=== PATIENT | female | born 1980 | race Hispanic/Latino ===

== ENCOUNTER → 2023-06-22 | Emergency (ER) | payer SELFPAY ==
[~2023-06-22] MED LIST: KETOROLAC 30 MG/ML INJ ONE; MORPHINE 4 MG/ML SYR ONE; ONDANSETRON 4 MG/2 ML VIAL ONE
--- OUTSIDE RECORDS SUMMARY | 2023-06-22 14:52 | XMS REPORT | Continuity of Care Document ---
Author Name Unknown Address [address] [place] [address] th[address] Address [address] [place] [address] [address] [place] [address] Care Team Providers Care Fountain Dispenser Name Role Phone ERIN_MILLIE Attending Clinician Unavailable ERIN_MILLIE Admitting Clinician Unavailable Encounters Start Date/Time End Date/Time Encounter Type Admission Type Attending Clinicians Care Facility Care Department Encounter ID Source 2021-11-03 00:00:00 2021-11-03 00:00:00 Outpatient ERIN_BRANT Sánchez [facility] [id number] Sydnie haynes [facility] Program
[2023-06-22 15:53] LABS: Absolute Basophils 0.1 K/uL (0-0.5); Absolute Eosinophils 0.1 K/uL (0-0.5); Absolute Lymphocytes (CBC) 2.2 K/uL (0.7-4.9); Absolute Monocytes 0.5 K/uL (0.1-1.3); Basophils % 0.9 % (0-1.3); Eosinophils % 1.4 % (0-4.4); Hematocrit 40.7 % (36.0-45.0); Hemoglobin 13.8 g/dL (12.0-15.0); Lymphocytes % 27.8 % (15.3-44.8); MCH 29.9 pg (27.0-35.0); MCHC 33.9 g/dL (32.0-36.0); MCV 88.2 fL (80-100); MPV 8.1 fL (7.6-11.3); Monocytes % 6.3 % (3.3-12.3); Neutrophils % 63.6 % (41.7-73.7); Platelets 317 thou/uL (152-406); RBC Red Blood Cell Count 4.61 M/uL (3.86-4.86); Red Cell Distribution Width 13.3 % (12.1-15.2)
[2023-06-22 16:09] LABS: Albumin 3.4 g/dL (3.4-5.0); Albumin/Globulin Ratio 0.9 (1.1-1.8); Anion Gap 10.8 mEq/L (5.0-15.0); Bilirubin Total 0.3 mg/dL (0.2-1.0); Globulin 3.6 g/dL (2.3-3.5); Potassium 3.8 mEq/L (3.5-5.1)
[2023-06-22 16:25] LABS: Specific Gravity 1.021 (1.005-1.030)
[2023-06-22 16:26] LABS: Specific Gravity 1.021 (1.005-1.030); Sqamous Epithelial <5 /HPF (None Seen); Urine Bacteria None Seen /HPF (<20); Urine Bilirubin NEGATIVE (Negative); Urine Blood Negative (Negative); Urine Clarity Turbid (Clear); Urine Color Light-Yellow (Yellow); Urine Culture Reflex Order NOT NEEDED; Urine Glucose NEGATIVE (Negative); Urine Ketones NEGATIVE (Negative); Urine Microscopic Reflex YN ORDER UMIC; Urine Mucus Slight /HPF (None Seen); Urine Nitrite NEGATIVE (Negative); Urine Protein NEGATIVE (Negative); Urine RBC None Seen /HPF (None Seen); Urine Urobilinogen Normal (Normal); Urine WBC <5 /HPF (<5); Urine pH 5.5 (5.0-7.0)
--- NOTE | 2023-06-22 17:01 | RAD REPORT ---
EXAM DESCRIPTION: CT - Abdomen Pelvis Wo Contrast - 06/22/2023 4:49 pm CLINICAL HISTORY: Abdominal pain. ABD PAIN COMPARISON: No comparisons TECHNIQUE: CT imaging of the abdomen and pelvis was performed without contrast. Solid organ, bowel a nd vascular assessment is limited due to lack of IV and oral contrast. All CT scans are performed using dose optimization technique as appropriate and may include automated exposure control or mA/KV adjustment according to patient size. FINDINGS: The lower lung suarez are clear.Cholecystectomy. The liver, spleen, pancreas, adrenal glands and right kidney are within normal limits for a limited n on-contrast examination.Punctate left nephrolithiasis. No bowel obstruction, free air, free fluid or abscess. The appendix is normal. Mild fibroid uterus. The osseous structures are within normal limits. IMPRESSION: No acute intra-abdominal or pelvic findings. Punctate left nephrolithiasis. A limited non-contrast examination was performed as detailed.
--- NOTE | 2023-06-22 17:39 | EDPHYS ---
Physician Documentation [facility] Name: Stephania Miller Age: 42 yrs Sex: Female : 1980 Arrival Date: 06/22/2023 Time: 14:49 Bed 20 Private MD: ED Physician Raya Melissa HPI: 06/21 17:32 This 42 yrs old Female presents to ER via Ambulatory with complaints of Flank cp3 Pain. 17:32 the patient is a 42 yo male with left flank pain that started yesterday. no fever cp3 ,chills, nausea, vomiting. Historical: - Allergies: 15:10 No Known Allergies; aa5 - PMHx: 15:10 ADD/ADHD; Anxiety; Degenerative disc disease; Depression; sleep issues (Depression); aa5 - PSHx: 15:10 section; Cholecystectomy; aa5 - Immunization history:: Adult Immunizations unknown. - Social history:: Smoking status: Patient reports the use of cigarette tobacco products, smokes one-half pack cigarettes per day. ROS: 17:32 Constitutional: Negative for fever, chills, and weight loss, Eyes: Negative for injury, cp3 pain, redness, and discharge, ENT: Negative for injury, pain, and discharge, Neck: Negative for injury, pain, and swelling, Cardiovascular: Negative for chest pain, palpitations, and edema, Respiratory: Negative for shortness of breath, cough, wheezing, and pleuritic chest pain, MS/Extremity: Negative for injury and deformity, Skin: Negative for injury, rash, and discoloration, Neuro: Negative for headache, weakness, numbness, tingling, and seizure, 17:32 Abdomen/GI: Positive for abdominal pain, right flank pain, 17:32 Back: Positive for flank pain, Exam: 17:32 Constitutional: This is a well developed, well nourished patient who is awake, alert, cp3 and in no acute distress. Head/Face: Normocephalic, atraumatic. Neck: Trachea midline, no thyromegaly or masses palpated, and no cervical lymphadenopathy. Supple, full range of motion without nuchal rigidity, or vertebral point tenderness. No Meningismus. Chest/axilla: Normal chest wall appearance and motion. Nontender with no deformity. No lesions are appreciated. Cardiovascular: Regular rate and rhythm with a normal S1 and S2. No gallops, murmurs, or rubs. Normal PMI, no JVD. No pulse deficits. Respiratory: Lungs have equal breath sounds bilaterally, clear to auscultation and percussion. No rales, rhonchi or wheezes noted. No increased work of breathing, no retractions or nasal flaring. Abdomen/GI: Soft, non-tender, with normal bowel sounds. No distension or tympany. No guarding or rebound. No evidence of tenderness throughout. 17:32 Back: CVA tenderness, that is mild, is noted on the right, Vital Signs: 15:10 BP 145 / 98; Pulse 105; Resp 20 S; Temp 98(TE); Pulse Ox 99% on R/A; Weight 100.7 kg aa5 (R); Height 5 ft. 5 in. (R); 17:30 BP 135 / 80; Pulse 80; Resp 18; Pulse Ox 99% on R/A; rs5 15:10 Body Mass Index 36.94 (100.70 kg, 165.1 cm) aa5 MDM: 15:13 Patient medically screened. cp3 17:32 Differential diagnosis: nephrolithiasis, pyelonephritis, UTI, lumbar radiculopathy. cp3 Data reviewed: vital signs, nurses notes. Consideration of Admission/Observation Escalation of care including admission/observation considered. Independent interpretation of the following test(s) in the Emergency Department CT Scan: My interpretation is ct abd/pelvis interpreted by me- no free fluid or free air. 06/21 15:26 Order name: CBC with Diff; Complete Time: 16:49 cp3 06/21 15:26 Order name: CMP; Complete Time: 16:49 cp3 06/21 15:26 Order name: Lipase; Complete Time: 16:49 cp3 06/21 15:26 Order name: Test, Urine; Complete Time: 16:49 cp3 06/21 15:26 Order name: Urinalysis w/ reflexes; Complete Time: 16:49 cp3 06/21 15:26 Order name: CT Abd/Pelvis - Without Contrast; Complete Time: 17:16 cp3 06/21 15:26 Order name: IV Saline Lock; Complete Time: 15:46 cp3 06/21 15:26 Order name: Labs collected and sent; Complete Time: 15:46 cp3 Administered Medications: 15:40 Drug: TORadol - Ketorolac IVP 15 mg IVP once Route: IVP; Site: left antecubital; rs5 16:00 Follow up: Response: No adverse reaction rs5 15:40 Drug: Ondansetron IVP 4 mg IVP once; over 2 minutes Route: IVP; Site: left antecubital; rs5 16:00 Follow up: Response: No adverse reaction rs5 15:40 Drug: morphine IVP or IV 4 mg IVP once over 4 mins Route: IVP; Infused Over: 4 mins; rs5 Site: left antecubital; 16:00 Follow up: Response: No adverse reaction rs5 Disposition Summary: 06/22/23 17:38 Discharge Ordered Notes: Location: Home cp3 Condition: Stable cp3 Diagnosis - right flank pain cp3 - right back pain cp3 Followup: cp3 - With: Edin Brody MD - When: - Reason: Continuance of care Discharge Instructions: - Discharge Summary Sheet cp3 - Flank Pain, Adult cp3 Forms: - Medication Reconciliation Form cp3 - Thank You Letter cp3 - Antibiotic Education cp3 - Prescription Opioid Use cp3 - Patient Portal Instructions cp3 - Leadership Thank You Letter cp3 Prescriptions: - Tylenol 3. 1 tab po q 8 hours as needed #12 - take 1 tablet ORAL route 3 times per day As needed; 12 tablet; Refills: 0, cp3 Product Selection Permitted - Ibuprofen 600 mg Oral Tablet - take 1 tablet ORAL route every 6 hours As needed take with food; 30 tablet; cp3 Refills: 0, Product Selection Permitted - Cyclobenzaprine 5 mg Oral Tablet - take 1 tablet ORAL route 3 times per day As needed; 15 tablet; Refills: 0, cp3 Product Selection Permitted Signatures: Dispatcher [employer] Raya Villegas MD MD cp3 Vannesa Salas RN RN aa5 Ras Sanchez RN RN rs5
--- NOTE | 2023-06-22 17:39 | ER ---
Nurse's Notes [facility] Name: Stephania Miller Age: 42 yrs Sex: Female : 1980 Arrival Date: 06/22/2023 Time: 14:49 Bed 20 Private MD: Diagnosis: right flank pain;right back pain Presentation: 06/21 15:10 Chief complaint: Patient states: right lower back pain radiating to RLQ. Pt states "I aa5 had this pain last weekend but it went away on Saturday and it just started back up again on ". 15:10 Coronavirus screen: At this time, the client does not indicate any symptoms associated aa5 with coronavirus-19. Ebola Screen: Patient denies travel to an Ebola-affected area in the 21 days before illness onset. Initial Sepsis Screen: Does the patient meet any 2 criteria? No. Patient's initial sepsis screen is negative. Does the patient have a suspected source of infection? No. Patient's initial sepsis screen is negative. Risk Assessment: Do you want to hurt yourself or someone else? Patient reports no desire to harm self or others. Onset of symptoms was June 2023. 15:10 Acuity: NINA 3 aa5 15:10 Method Of Arrival: Ambulatory aa5 Historical: - Allergies: 15:10 No Known Allergies; aa5 - PMHx: 15:10 ADD/ADHD; Anxiety; Degenerative disc disease; Depression; sleep issues (Depression); aa5 - PSHx: 15:10 section; Cholecystectomy; aa5 - Immunization history:: Adult Immunizations unknown. - Social history:: Smoking status: Patient reports the use of cigarette tobacco products, smokes one-half pack cigarettes per day. Screenin:[facility] ED Fall Risk Assessment (Adult) History of falling in the last 3 months, rs5 including since admission No falls in past 3 months (0 pts) Confusion or Disorientation No (0 pts) Intoxicated or Sedated No (0 pts) Impaired Gait No (0 pts) Mobility Assist Device Used No (0 pt) Altered Elimination No (0 pt) Score/Fall Risk Level 0 - 2 = Low Risk Oriented to surroundings, Maintained a safe environment. Abuse screen: Denies threats or abuse. Nutritional screening: No deficits noted. Tuberculosis screening: No symptoms or risk factors identified. Assessment: 15:07 General: Appears distressed, uncomfortable, Behavior is cooperative. Pain: Complains of rs5 pain in right flank Pain does not radiate. Pain currently is 9 out of 10 on a pain scale. Quality of pain is described as crampy, Is continuous. Neuro: Level of Consciousness is awake, alert, obeys commands, Oriented to person, place, time, situation. Cardiovascular: Patient's skin is warm and dry. Rhythm is regular. Respiratory: Airway is patent Respiratory effort is even, unlabored, Respiratory pattern is regular, symmetrical. GI: Abdomen is round Abd is soft and non tender X 4 quads. : No signs and/or symptoms were reported regarding the genitourinary system. EENT: No signs and/or symptoms were reported regarding the EENT system. Derm: Skin is intact, Skin is normal. 15:07 Musculoskeletal: Range of motion: intact in all extremities. rs5 16:15 Reassessment: Patient and/or family updated on plan of care and expected duration. Pain rs5 level reassessed. Patient is alert, oriented x 3, equal unlabored respirations, skin warm/dry/pink. Patient states feeling better. Patient states symptoms have improved. 16:53 Reassessment: No changes from previously documented assessment. rs5 18:00 Reassessment: No changes from previously documented assessment. rs5 Vital Signs: 15:10 BP 145 / 98; Pulse 105; Resp 20 S; Temp 98(TE); Pulse Ox 99% on R/A; Weight 100.7 kg aa5 (R); Height 5 ft. 5 in. (R); 17:30 BP 135 / 80; Pulse 80; Resp 18; Pulse Ox 99% on R/A; rs5 15:10 Body Mass Index 36.94 (100.70 kg, 165.1 cm) aa5 ED Course: 14:51 Patient arrived in ED. mg5 14:54 Raya Melissa MD is Attending Physician. cp3 15:09 Ras Sanchez, GAY is Primary Nurse. rs5 15:10 Arm band placed on Patient placed in an exam room, on a stretcher. aa5 15:12 Triage completed. aa5 15:38 Inserted saline lock: 20 gauge in left antecubital area, using aseptic technique. Blood rs5 collected. 15:40 Patient maintains SpO2 saturation greater than 95% on room air. hb 15:49 Patient has correct armband on for positive identification. Placed in gown. Bed in low rs5 position. Call light in reach. Side rails up X2. 16:21 Radiology exam delayed due to test not completed at this time. jj2 16:[address] hb 16:51 CT Abd/Pelvis - Without Contrast In Process Unspecified. EDMS 17:37 Edin Brody MD is Referral Physician. cp3 18:00 No provider procedures requiring assistance completed. rs5 18:00 IV discontinued, intact, bleeding controlled, No redness/swelling at site. Pressure rs5 dressing applied. Administered Medications: 15:40 Drug: TORadol - Ketorolac IVP 15 mg IVP once Route: IVP; Site: left antecubital; rs5 16:00 Follow up: Response: No adverse reaction rs5 15:40 Drug: Ondansetron IVP 4 mg IVP once; over 2 minutes Route: IVP; Site: left antecubital; rs5 16:00 Follow up: Response: No adverse reaction rs5 15:40 Drug: morphine IVP or IV 4 mg IVP once over 4 mins Route: IVP; Infused Over: 4 mins; rs5 Site: left antecubital; 16:00 Follow up: Response: No adverse reaction rs5 Medication: 15:50 VIS not applicable for this client. rs5 Outcome: 17:38 Discharge ordered by MD. cp3 18:00 Discharged to home ambulatory, rs5 18:00 Condition: stable 18:00 Discharge instructions given to patient, family, Instructed on discharge instructions, follow up and referral plans. Demonstrated understanding of instructions, follow-up care, 18:01 Patient left the ED. rs5 Signatures: Dispatcher [employer] EDMS Raya Melissa MD MD cp3 Benjamin Collazo jj2 Vannesa Salas RN RN aa5 Jessie Hernandez RN RN Ras Sanchez RN RN rs5 Geneva Rivas mg5
[2023-06-22 18:57] VITALS: BP 145/98; TEMP 98; O2SAT 99
== END ==
LOC: ER 14:49
DX: R10.9 Unspecified abdominal pain (principal); M54.9 Dorsalgia, unspecified
CPT/HCPCS: 36415; 74176; 80053; 81001; 81025; 83690; 85025; 96374; 96375; 99285; J2405